=== PATIENT | female | born 1990 | race Caucasian/White ===

== ENCOUNTER 2016-11-04 14:58 | Emergency (ER) | payer BC ==
[2016-11-04] MEDS ORDERED: SODIUM CHLORIDE 0.9% FLUSH 5 ML FLUSH IVF PRN (16:15)
[2016-11-04] MEDS ORDERED: ACETAMINOPHEN 325 MG TAB PO ONE (16:15)
--- NOTE | 2016-11-04 16:27 | PD ---
HPI Chief Complaint Nausea, vomiting, diarrhea, left flank pain and pelvic pressure Date Seen: Nov 04, 2016 Travel History International Travel<30 Days: No Contact w/Intl Traveler<30Days: No Known Affected Area: No History of Present Illness HPI 26-year-old G 3 P1 011 at 20 weeks of gestation, EDC 03/24/17, patient presents to OB ED with complaints of nausea, vomiting, diarrhea, pelvic pressure and left flank pain. Patient stated that symptoms started this morning and that she vomited while she was OB ED. She denies fever and chills, reports presence of clear vaginal discharge with no irritation or odor. Patient denies contractions, leakage of fluids, vaginal bleeding and cramping. care is with Dr. Jacobson. course is significant for history of delivery 1. Patient denies sick contacts at home. Para: 1 : 2 Miscarriage: 1 : 0 History Past Medical History Narrative Medical Denies Medical History: Denies Significant Hx Allergies-Medications (Allergen,Severity, Reaction): Coded Allergies: No Known Allergies (Unverified , 11/04/16) Review of Systems Except as stated in HPI: all other systems reviewed are Neg Gastrointestinal: Nausea, Vomiting, Diarrhea Genitourinary: Discharge, Other (left flank pain, pelvic pressure) Physical Exam Narrative GENERAL: Well-nourished, well-developed patient. SKIN: Warm and dry. HEAD: Normocephalic and atraumatic. EYES: No scleral icterus. No injection or drainage. ENT: No nasal drainage noted. Mucous membranes pink. Airway patent. NECK: Supple, trachea midline. No JVD. CARDIOVASCULAR: Regular rate and rhythm without murmurs, gallops, or rubs. RESPIRATORY: Breath sounds equal bilaterally. No accessory muscle use. BREASTS: Bilateral exam showed no masses , no retractions, no nipple discharge. ABDOMEN/GI: Abdomen soft, gravid, non-tender, bowel sounds present, no rebound, no guarding Gravid to 20weeks size Fundal Height: 20 cm GENITOURINARY: External Genitalia: intact and normal in appearance BUS glands: Normal Cervix: Closed long posterior Dilatation: Closed Effacement: 30% Station: -3 Presentation: Cephalic Membranes: Intact Uterine Contractions: None Heart tone by Doppler: 160's EXTREMITIES: No cyanosis or edema. BACK: Nontender without obvious deformity. No CVA tenderness. NEUROLOGICAL: Awake and alert. Motor and sensory grossly within normal limits. Five out of 5 muscle strength in all muscle groups. Normal speech. Data Data Vital Signs Reviewed: Yes Orders Vital Signs (Adult) [id number] AWAKE (11/04/16 16:11) ^ Heart (11/04/16 16:11) Activity Oob Ad Cecilia (11/04/16 16:11) Complete Blood Count With Diff (11/04/16 16:11) Basic Metabolic Panel (Bmp) (11/04/16 16:11) Urinalysis - C+S If Indicated (11/04/16 16:11) Sodium Chloride 0.9% Flush (Ns Flush) (11/04/16 21:00) Sodium Chloride 0.9% Flush (Ns Flush) (11/04/16 16:15) Acetaminophen (Tylenol) (11/04/16 16:15) Amylase (11/04/16 16:14) Lipase (11/04/16 16:14) MDM Diagnosis Diagnosis: Primary Impression: 20 weeks gestation of Additional Impression: Gastroenteritis Disposition: 01 DISCHARGE HOME Condition: Stable Patient Instructions: General Instructions, Nausea and Vomiting in ( ED) Additional Instructions: Return to labor and delivery if increased symptoms, cramping, contractions, leakage of fluids, vaginal discharge, decreased movement or vaginal bleeding. Drink plenty of fluids. kick counts. Keep office appointment as scheduled. Take medications as prescribed. Departure Forms: Tests/Procedures Fuad Fajardo MD Nov 04, 2016 16:27
[2016-11-04 16:49] LABS: AUTOMATED NEUTROPHIL # 8.5 TH/MM3 (1.8-7.7); BASOPHIL % 0.2 % (0.0-2.0); EOSINOPHIL # 0.1 TH/MM3 (0-0.4); EOSINOPHIL % 0.9 % (0.0-4.0); HEMATOCRIT 33.3 % (35.0-46.0); HEMO FLAGS DIFF FINAL; LYMPH % 11.2 % (9.0-44.0); LYMPHOCYTE # 1.2 TH/MM3 (1.0-4.8); MEAN CELL VOLUME 87.8 FL (80.0-100.0); MEAN CORPUSCULAR HEMOGLOBIN 31.1 PG (27.0-34.0); MEAN CORPUSCULAR HGB CONC 35.4 % (32.0-36.0); MONO % 5.8 % (0.0-8.0); NEUT % 81.9 % (16.0-70.0); PLATELET COUNT 238 TH/MM3 (150-450); RED BLOOD COUNT 3.79 MIL/MM3 (4.00-5.30); RED CELL DISTRIBUTION WIDTH 13.7 % (11.6-17.2); WHITE BLOOD COUNT 10.4 TH/MM3 (4.0-11.0)
[2016-11-04] MEDS ORDERED: LACTATED RINGER'S 1000 ML INJ 1,000 ML IV SCH (17:00)
[2016-11-04] MEDS ORDERED: ONDANSETRON HCL 4 MG/2 ML VIAL IV PUSH PRN (17:00)
[2016-11-04 17:02] VITALS: RESP 18
[2016-11-04 17:03] VITALS: BP 124/73; PULSE 97
[2016-11-04 17:14] LABS: BLOOD, URINE SMALL (NEG); COMMENT (UR) CULT NOT INDICATED; CULTURE IF INDICATED CULT NOT INDICATED; GLUCOSE,URINE NEG (NEG); KETONE, URINE 40 mg/dL (NEG); NITRITE,URINE NEG (NEG); PH, URINE 7.5 (5.0-8.5); SQUAMOUS EPITHELIAL CELL URINE 1 /hpf (0-5); URINE COLOR LIGHT-YELLOW (YELLW/STRAW)
[2016-11-04 17:14] LABS: BICARBONATE 22.8 MEQ/L (21.0-32.0); POTASSIUM 3.7 MEQ/L (3.5-5.1)
[2016-11-04] MEDS ORDERED: SODIUM CHLORIDE 0.9% FLUSH 5 ML FLUSH IVF SCH (21:00)
[2016-11-04 21:33] LABS: AMYLASE 77 U/L (25-115)
== END 2016-11-04 17:53 | disposition home or self-care (01) ==
LOC: HOBED 14:58
DX: K52.9 Noninfective gastroenteritis and colitis, unspecified (principal); O26.892 Other specified pregnancy related conditions, second trimester; Z3A.20 20 weeks gestation of pregnancy
CPT/HCPCS: 76815; 80048; 81001; 82150; 83690; 85025; 96360; 99284; J7120

== ENCOUNTER → 2017-01-09 | Outpatient (CLI) | payer BC ==
[~2017-01-09] MED LIST: FERR325T PO; IBUP800T23 PO; OXYC1TAB63 PO; SENN1TAB PO
== END ==
LOC: CLAB 13:18
PROVIDERS: ATTEND Obstetrics & Gynecology
DX: Z34.83 Encounter for supervision of other normal pregnancy, third trimester (principal); Z3A.28 28 weeks gestation of pregnancy; Z67.41 Type O blood, Rh negative
CPT/HCPCS: 36415; 86850; 86900; 86901; 90384; 96372; J2790

== ENCOUNTER 2017-03-15 08:19 | Inpatient (IN) | payer BC ==
[2017-03-15] VITALS (14 sets, daily range): BP systolic 98–124; BP diastolic 42–72; PULSE 82–109; RESP 18–20; TEMP 98.1–100.4; O2SAT 96–98
[2017-03-15] MEDS: LACTATED RINGER'S 1000 ML INJ 1,000 ML IV SCH ×3 (08:51→15:29)
[2017-03-15] MEDS ORDERED: LACTATED RINGER'S 1000 ML INJ 1,000 ML IV PRN (08:51)
[2017-03-15] MEDS ORDERED: LIDOCAINE HCL 1% 50 ML VIAL INFIL PRN (09:00)
[2017-03-15] MEDS ORDERED: LIDOCAINE HCL 1% 50 ML VIAL I-DERMAL PRN (09:00)
[2017-03-15] MEDS ORDERED: SODIUM CHLORID 0.9% 500 ML INJ 500 ML IV PRN (09:00)
[2017-03-15] MEDS ORDERED: MINERAL OIL 10 ML VIAL TOPICAL PRN (09:00)
[2017-03-15] MEDS ORDERED: OXYTOCIN 30 UNITS-500ML PREMIX 500 ML IV ONE ×2 (09:00→20:15)
[2017-03-15] MEDS ORDERED: CITRIC ACID-SODIUM CITRATE LIQ 30 ML UDC PO SCH ×2 (09:00→18:45)
[2017-03-15] MEDS ORDERED: SODIUM CHLOR 0.9% 1000 ML INJ 1,000 ML IV PRN (09:11)
--- NOTE | 2017-03-15 09:17 | PD ---
HPI Chief Complaint Possible ruptured membranes Date Seen: March 15, 2017 Time Seen: 08:55 Travel History International Travel<30 Days: No Contact w/Intl Traveler<30Days: No Known Affected Area: No History of Present Illness HPI 27-year-old 3 para 1 AB 1 at 38-2/7 weeks' gestation who comes today with report of ruptured membranes. She states that at 6:30 this morning she had a large amount of clear fluid leaking from the vagina. She denies significant contractions or bleeding. Her examination for rupture membranes was positive and her cervix is 2 cm, 50% effaced, -2 station, vertex presentation. She has had an uncomplicated course with Dr. Jacobson. She has a prior and is planning to . Para: 1 : 3 Miscarriage: 1 History Past Medical History Medical History: Denies Significant Hx Past Surgical History Narrative Surgical Family History Family History: Negative Social History Alcohol Use: No Tobacco Use: No Substance Abuse: No Allergies-Medications (Allergen,Severity, Reaction): Coded Allergies: No Known Allergies (Unverified , 11/04/16) Review of Systems Except as stated in HPI: all other systems reviewed are Neg Physical Exam Narrative GENERAL: Well-nourished, well-developed patient. SKIN: Warm and dry. HEAD: Normocephalic and atraumatic. EYES: No scleral icterus. No injection or drainage. ENT: No nasal drainage noted. Mucous membranes pink. Airway patent. NECK: Supple, trachea midline. No JVD. CARDIOVASCULAR: Regular rate and rhythm without murmurs, gallops, or rubs. RESPIRATORY: Breath sounds equal bilaterally. No accessory muscle use. ABDOMEN/GI: Abdomen soft, non-tender, bowel sounds present, no rebound, no guarding Gravid to [-] weeks size Fundal Height: [-] GENITOURINARY: External Genitalia: intact and normal in appearance BUS glands: [Normal-] Cervix: [-] Dilatation: [2-] Effacement: [50-] Station: [-2-] Presentation: [Vertex-] Membranes: [ruptured] Uterine Contractions: [-Mild irregular] FHT's: Category: [1-] Baseline: [-] Reactive: [-] Variability: [-] Decels: [-] EXTREMITIES: No cyanosis or edema. BACK: Nontender without obvious deformity. No CVA tenderness. NEUROLOGICAL: Awake and alert. Motor and sensory grossly within normal limits. Five out of 5 muscle strength in all muscle groups. Normal speech. Data Data Vital Signs Reviewed: Yes MDM Medical Record Reviewed: Yes Narrative Course / MDM Assessment: 38+ week intrauterine with spontaneous rupture membranes, prior desiring Plan: The patient will be admitted for labor management. Zackary Buchanan MD March 15, 2017 09:17
--- NOTE | 2017-03-15 09:24 | HHI.HP ---
History & Physical H&P Patient Name: Khadra Horn Unit Number: [id number] Date of : 1990 Patient Status: Admitted Inpatient Attending Doctor: Chantal Jacobson MD [facility] HPI Chief Complaint Possible ruptured membranes Date Seen: March 15, 2017 Time Seen: 08:55 Travel History International Travel<30 Days: No Contact w/Intl Traveler<30Days: No Known Affected Area: No History of Present Illness HPI 27-year-old 3 para 1 AB 1 at 38-2/7 weeks' gestation who comes today with report of ruptured membranes. She states that at 6:30 this morning she had a large amount of clear fluid leaking from the vagina. She denies significant contractions or bleeding. Her examination for rupture membranes was positive and her cervix is 2 cm, 50% effaced, -2 station, vertex presentation. She has had an uncomplicated course with Dr. Jacobson. She has a prior and is planning to . Para: 1 : 3 Miscarriage: 1 History (Limited) History Past Medical History Medical History: Denies Significant Hx Past Surgical History Narrative Surgical Family History Family History: Negative Social History Alcohol Use: No Tobacco Use: No Substance Abuse: No Allergies-Medications Allergies-Medications (Allergen,Severity, Reaction): Coded Allergies: No Known Allergies (Unverified , 11/04/16) ROS Review of Systems Except as stated in HPI: all other systems reviewed are Neg Physical Exam Physical Exam Narrative GENERAL: Well-nourished, well-developed patient. SKIN: Warm and dry. HEAD: Normocephalic and atraumatic. EYES: No scleral icterus. No injection or drainage. ENT: No nasal drainage noted. Mucous membranes pink. Airway patent. NECK: Supple, trachea midline. No JVD. CARDIOVASCULAR: Regular rate and rhythm without murmurs, gallops, or rubs. RESPIRATORY: Breath sounds equal bilaterally. No accessory muscle use. ABDOMEN/GI: Abdomen soft, non-tender, bowel sounds present, no rebound, no guarding Gravid to [-] weeks size Fundal Height: [-] GENITOURINARY: External Genitalia: intact and normal in appearance BUS glands: [Normal-] Cervix: [-] Dilatation: [2-] Effacement: [50-] Station: [-2-] Presentation: [Vertex-] Membranes: [ruptured] Uterine Contractions: [-Mild irregular] FHT's: Category: [1-] Baseline: [-] Reactive: [-] Variability: [-] Decels: [-] EXTREMITIES: No cyanosis or edema. BACK: Nontender without obvious deformity. No CVA tenderness. NEUROLOGICAL: Awake and alert. Motor and sensory grossly within normal limits. Five out of 5 muscle strength in all muscle groups. Normal speech. Data Data Data Vital Signs Reviewed: Yes MDM MDM Medical Record Reviewed: Yes Narrative Course / MDM Assessment: 38+ week intrauterine with spontaneous rupture membranes, prior desiring Plan: The patient will be admitted for labor management. Dr. Jacobson was notified. Zackary Buchanan MD March 15, 2017 09:17 Zackary Buchanan MD March 15, 2017 09:24
[2017-03-15 10:00] LABS: AUTOMATED NEUTROPHIL # 6.8 TH/MM3 (1.8-7.7); BASOPHIL % 0.4 % (0.0-2.0); EOSINOPHIL # 0.2 TH/MM3 (0-0.4); EOSINOPHIL % 1.9 % (0.0-4.0); HEMATOCRIT 33.7 % (35.0-46.0); HEMO FLAGS DIFF FINAL; LYMPH % 23.4 % (9.0-44.0); LYMPHOCYTE # 2.4 TH/MM3 (1.0-4.8); MEAN CELL VOLUME 89.1 FL (80.0-100.0); MEAN CORPUSCULAR HEMOGLOBIN 30.4 PG (27.0-34.0); MEAN CORPUSCULAR HGB CONC 34.1 % (32.0-36.0); MONO % 8.3 % (0.0-8.0); PLATELET COUNT 212 TH/MM3 (150-450); RED BLOOD COUNT 3.78 MIL/MM3 (4.00-5.30); RED CELL DISTRIBUTION WIDTH 13.6 % (11.6-17.2); WHITE BLOOD COUNT 10.2 TH/MM3 (4.0-11.0)
[2017-03-15 10:04] LABS: BACTERIA, URINE FEW /hpf; BLOOD, URINE MOD (NEG); COMMENT (UR) CULTURE INDICATED; CULTURE IF INDICATED CULTURE INDICATED; GLUCOSE,URINE NEG (NEG); HYALINE CAST, URINE 2 /lpf (RARE); KETONE, URINE NEG (NEG); MUCUS URINE FEW /lpf (OCC); NITRITE,URINE NEG (NEG); PH, URINE 7.5 (5.0-8.5); SQUAMOUS EPITHELIAL CELL URINE 12 /hpf (0-5); URINE COLOR YELLOW (YELLW/STRAW)
[2017-03-15] MEDS ORDERED: fentaNYL 2MCG-BUPIV 0.125% INJ 100 ML ONE (11:56)
[2017-03-15] MEDS ORDERED: ePHEDrine/NS 25 MG/5 ML SYR ONE (11:56)
--- NOTE | 2017-03-15 12:29 | PD.LABORPN ---
Subjective Subjective pt feeling increasing contractions. will be considering epidural later Objective Vital Signs Vital Signs Date Time Temp Pulse Resp B/P Pulse Ox O2 Delivery O2 Flow Rate FiO2 03/15/17 11:15 98.1 03/15/17 11:14 92 18 116/72 03/15/17 09:05 100 Objective Pelvic Exam: 3-470/-1, amniotomy remaining membranes, ceph, cat I tracing, prior variable deceleration. crx q4-5 min. Assessment/Plan Problem List: (1) History of delivery (2) Labor and delivery indication for care or intervention Assessment and Plan tolac at 38w2d presented w srom expectant management as she is progressing well on own. arom of remaining membranes performed. iupc placed Chantal Jacobson MD March 15, 2017 12:29 Decels: [-] Assessment/Plan Problem List: (1) History of delivery (2) Labor and delivery indication for care or intervention Assessment and Plan tolac at 38w2d presented w srom expectant management as she is progressing well on own. arom if remaining membranes performed. iupc placed Chantal Jacobson MD March 15, 2017 12:29
[2017-03-15] MEDS ORDERED: fentaNYL 2MCG-BUPIV 0.125% 100 ML EPIDURAL SCH (14:00)
[2017-03-15] MEDS ORDERED: DO NOT ADMINISTER ANTICOAGULANTS PRN (14:00)
[2017-03-15] MEDS ORDERED: ePHEDrine/NS 25 MG/5 ML SYR IV PRN (14:00)
[2017-03-15] MEDS ORDERED: NO SYSTEM NARCOTICS PRN (14:00)
[2017-03-15] MEDS ORDERED: LACTATED RINGER'S 1000 ML INJ 1,000 ML IV ONE (17:06)
[2017-03-15] MEDS ORDERED: OXYTOCIN 10 UNIT/ML AMP ONE (17:14)
[2017-03-15] MEDS ORDERED: ceFAZolin INJ 1,000 MG VIAL ONE (17:14)
[2017-03-15] MEDS ORDERED: LACTATED RINGER'S 1000 ML INJ 1,000 ML IV SCH (18:00)
[2017-03-15 18:09] LABS: BLOOD GAS BASE EXCESS -3.5 mmol/L (-2-2); BLOOD GAS O2 HGB SATURATION 21 % (90-100); CORD BLOOD GAS HCO3 23 mmol/L (21-29); CORD BLOOD GAS PCO2 52 mmHG (34-78); CORD BLOOD GAS PH 7.26 (7.14-7.42)
[2017-03-15 18:10] LABS: CORD BLOOD GAS PO2 16 mmHG (3.0-40.0); DRAW SITE CORD BLOOD; STAT NO
[2017-03-15] MEDS ORDERED: ceFAZolin 2 GM PREMIX 50 ML IV SCH (18:15)
[2017-03-15] MEDS ORDERED: ALBUMIN HUMAN 5% 12.5 GM/250 ML BOTTLE IV ONE (18:30)
[2017-03-15 18:49] LABS: HEMATOCRIT 27.5 % (35.0-46.0)
[2017-03-15] MEDS ORDERED: MORPHINE SULFATE PF 5 MG/10 ML VIAL EPIDURAL ONE (19:30)
[2017-03-15] MEDS ORDERED: MORPHINE SULFATE PF 5 MG/10 ML VIAL ONE (19:48)
[2017-03-15] MEDS ORDERED: ONDANSETRON HCL 4 MG/2 ML VIAL ONE (19:48)
[2017-03-15] MEDS ORDERED: ONDANSETRON HCL 4 MG/2 ML VIAL IV PUSH ONE (19:52)
[2017-03-15] MEDS ORDERED: DEXAMETHASONE SOD PHOS 4 MG/ML VIAL IV ONE (19:52)
[2017-03-15] MEDS ORDERED: PARENTERAL ELECTROLYTES PH 7.4 1000 ML BAG IV ONE (19:52)
--- NOTE | 2017-03-15 20:07 | PD.OB.DELI ---
Procedure Note Section Procedure Pre Op Diagnosis: (1) History of delivery (2) Non-reassuring electronic monitoring tracing (3) Arrested labor (4) Cephalopelvic disproportion Post Op Diagnosis: (1) History of delivery (2) Non-reassuring electronic monitoring tracing (3) Arrested labor (4) Cephalopelvic disproportion Performed by Chantal Jacobson Procedure: Repeat Low Transverse Sec Indication for delivery: Nonreassuring heart tracing, malposition ( ROT, asynclytic ) Informed consent obtained: For anesthesia, For procedure Confirmed correct: Patient, Procedure, Site, Time-out taken Anesthesia: Epidural Medication prior to procedure: As documented in eMAR Monitoring during procedure: Blood pressure monitoring, Pulse oximetry Urinary catheter: Inserted using sterile technique, To dependent drainage Sterile preparation: Duraprep Position: Supine with wedge to right side Operative Features Skin Incision: Pfannenstiel Uterine Incision: Low transverse w/knife / blunt ext Membranes Ruptured: Previously, Amount of liquid (copious), Appearance of fluid (clear) Delivery of infant: Other (deep transverse arrest) : Male One Minute : 8 Five Minute : 9 Weight: 3850g Status of infant: Viable, Cord blood, Nursery present Placenta delivered: Intact Medications: Antibiotics, Oxytocin Estimated blood loss: 1250ml Procedure tolerated: Fair Maternal Complications: Excessive bleeding, Other (extension of right angle of hysterotomy. Pt given albumin 250ml and 3000ml of LR for volume expansion) Maternal Condition: Stable Condition: Stable Procedure in detail see dictation Chantal Jacobson MD March 15, 2017 20:07
[2017-03-15] MEDS ORDERED: SIMETHICONE 80 MG CHEWABLE TAB PO PRN (20:15)
[2017-03-15] MEDS ORDERED: ONDANSETRON HCL 4 MG/2 ML VIAL IV PUSH PRN (20:15)
[2017-03-15] MEDS ORDERED: DOCUSATE SODIUM 50 MG/SENNA 8.6 MG TAB PO PRN (20:15)
[2017-03-15] MEDS ORDERED: ZOLPIDEM TARTRATE 5 MG TAB PO PRN (20:15)
[2017-03-15] MEDS ORDERED: oxyCODONE/ACETAMINOPHEN 5 MG/325 MG TAB PO PRN ×2 (20:15)
[2017-03-15] MEDS ORDERED: SODIUM CHLORIDE 0.9% FLUSH 10 ML FLUSH IV FLUSH PRN (20:15)
[2017-03-15] MEDS ORDERED: IBUPROFEN 600 MG TAB PO PRN (20:15)
[2017-03-15] MEDS ORDERED: KETOROLAC TROMETHAMINE 30 MG/ML (IVP) VIAL ONE (20:37)
[2017-03-15] MEDS: SODIUM CHLORIDE 0.9% FLUSH 10 ML FLUSH IV FLUSH SCH (21:00)
[2017-03-15 23:02] LABS: AUTOMATED NEUTROPHIL # 14.9 TH/MM3 (1.8-7.7); BASOPHIL % 0.1 % (0.0-2.0); HEMATOCRIT 25.6 % (35.0-46.0); HEMO FLAGS DIFF FINAL; LYMPH % 5.4 % (9.0-44.0); LYMPHOCYTE # 0.9 TH/MM3 (1.0-4.8); MEAN CELL VOLUME 88.5 FL (80.0-100.0); MEAN CORPUSCULAR HEMOGLOBIN 30.5 PG (27.0-34.0); MEAN CORPUSCULAR HGB CONC 34.5 % (32.0-36.0); MONO % 5.7 % (0.0-8.0); NEUT % 88.8 % (16.0-70.0); PLATELET COUNT 156 TH/MM3 (150-450); RED BLOOD COUNT 2.89 MIL/MM3 (4.00-5.30); RED CELL DISTRIBUTION WIDTH 13.4 % (11.6-17.2); WHITE BLOOD COUNT 16.8 TH/MM3 (4.0-11.0)
[2017-03-15 23:20] LABS: APTT (PATIENT) 30.2 SEC (24.3-30.1); INTERNATIONAL NORMALIZED RATIO 0.9 RATIO; PROTHROMBIN TIME - PATIENT 10.4 SEC (9.8-11.6)
[2017-03-16] MEDS ORDERED: LACTATED RINGER'S 1000 ML INJ 1,000 ML IV SCH (01:12)
[2017-03-16] MEDS ORDERED: ACETAMINOPHEN 1000 MG/100 ML VIAL IV ONE (02:00)
[2017-03-16 06:04] LABS: AUTOMATED NEUTROPHIL # 16.3 TH/MM3 (1.8-7.7); BASOPHIL % 0.1 % (0.0-2.0); HEMATOCRIT 23.7 % (35.0-46.0); HEMO FLAGS DIFF FINAL; LYMPH % 8.7 % (9.0-44.0); LYMPHOCYTE # 1.7 TH/MM3 (1.0-4.8); MEAN CELL VOLUME 90.1 FL (80.0-100.0); MEAN CORPUSCULAR HEMOGLOBIN 30.5 PG (27.0-34.0); MEAN CORPUSCULAR HGB CONC 33.9 % (32.0-36.0); MONO % 6.3 % (0.0-8.0); NEUT % 84.9 % (16.0-70.0); PLATELET COUNT 166 TH/MM3 (150-450); RED BLOOD COUNT 2.63 MIL/MM3 (4.00-5.30); RED CELL DISTRIBUTION WIDTH 13.4 % (11.6-17.2); WHITE BLOOD COUNT 19.1 TH/MM3 (4.0-11.0)
[2017-03-16] MEDS ORDERED: OXYTOCIN 30 UNITS-500ML PREMIX 500 ML IV PRN (06:15)
[2017-03-16 09:05] VITALS: BP 107/74; PULSE 93; RESP 18; TEMP 98.8
[2017-03-16] MEDS: ACETAMINOPHEN 325 MG TAB PO PRN ×2 (09:39→16:28)
--- NOTE | 2017-03-16 10:15 | HHI.OB ---
Subjective Post Operative Day: 1 Remarks Pt doing well this morning. Denies symptoms of anemia; no sob, palpitations, weakness or dizziness. Has only been taking ibuprofen and tylenol for pain control and is doing well. Liban po, passing flatus. Min VB. Does not want to do iron infusion as it has made her sick in the past. Does not feel symptomatic or desire blood transfusion at this time. Will continue to monitor symptoms and H/H. Objective Vitals/I&O Vital Signs Date Time Temp Pulse Resp B/P Pulse Ox O2 Delivery O2 Flow Rate FiO2 03/16/17 09:05 98.8 93 18 107/74 03/15/17 21:00 108 124/65 03/15/17 21:00 18 97 03/15/17 20:53 109 118/56 03/15/17 20:53 20 98 03/15/17 20:53 100.4 03/15/17 20:34 105 18 123/62 98 03/15/17 20:17 107 18 113/56 03/15/17 20:17 96 03/15/17 20:07 108 20 115/59 98 03/15/17 20:00 99 20 106/51 03/15/17 20:00 97 03/15/17 19:49 99.5 03/15/17 13:26 104 99/57 03/15/17 13:25 88 03/15/17 13:20 97 03/15/17 13:15 82 03/15/17 13:15 93 98/42 03/15/17 11:15 98.1 03/15/17 11:14 92 18 116/72 Result Diagram: 03/16/17 0454 Objective Remarks GENERAL: Well-nourished, well-developed patient. CARDIOVASCULAR: Regular rate and rhythm without murmurs, gallops, or rubs. RESPIRATORY: Breath sounds equal bilaterally. No accessory muscle use. ABDOMEN/GI: Abdomen soft, non-tender, bowel sounds present. Incision: pressure dressing Clean, dry and intact. Fundus: Firm, non-tender at umbilicus. GENITOURINARY: Light to moderate bleeding. EXTREMITIES: No cyanosis or edema, non-tender, without signs of DVT. Medications and IVs Current Medications Medications (Trade) Dose Ordered Sig/Ed Route Start Time Stop Time Status Last Admin Fentanyl Citrate 100 mcg 100 mcg Q1H PRN IV PUSH 03/15/17 09:00 (Lr 1000 ml Inj) 1,000 ml @ 100 mls/hr Q10H IV 03/16/17 01:12 03/16/17 21:11 (NS Flush) 2 ml BID IV FLUSH 03/15/17 21:00 (NS Flush) 2 ml UNSCH PRN IV FLUSH 03/15/17 20:15 (Mylicon Chew) 80 mg QID PRN PO 03/15/17 20:15 (Tylenol) 650 mg Q6H PRN PO 03/15/17 20:15 03/16/17 09:39 (Motrin) 600 mg Q6H PRN PO 03/15/17 20:15 03/16/17 09:40 (Percocet 5-325 Mg) 1 tab Q4H PRN PO 03/15/17 20:15 (Percocet 5-325 Mg) 2 tab Q4H PRN PO 03/15/17 20:15 (Rose-Colace) 2 tab Q12H PRN PO 03/15/17 20:15 (Ambien) 5 mg HS PRN PO 03/15/17 20:15 (M-M-R Ii Inj) 0.5 ml ONCE ONCE SQ 03/16/17 16:00 03/16/17 16:01 (Boostrix Inj) 0.5 ml ONCE ONCE IM 03/16/17 16:00 03/16/17 16:01 (Zofran Inj) 4 mg Q6H PRN IV PUSH 03/15/17 20:15 Assessment/Plan Problem List: (1) History of delivery (2) Labor and delivery indication for care or intervention Assessment and Plan 27 yo s/p repeat CD for failed tolac, NRFHT and CPD. Procedure complicated by extension of hysterotomy and ebl 1250ml POD 1 - doing well, cont routine care, will start to ambulate, still needs to void. Will remove dressing after shower Anemia- Does not want to do iron infusion as it has made her sick in the past. Does not feel symptomatic or desire blood transfusion at this time. Will continue to monitor symptoms and H/H. Baby Boy doing well, needs circ Chantal Jacobson MD March 16, 2017 10:15
[2017-03-16 12:25] VITALS: BP 108/68; PULSE 88; RESP 18; TEMP 98.4
--- NOTE | 2017-03-16 15:57 | HHI.DCPOC ---
Discharge Care Plan Diagnosis: (1) History of delivery (2) S/P repeat low transverse Your Health Problems Are: delivery Report Symptoms to Your Doctor -Temperate above 100.5 degrees -Redness, of incision or excessive or foul smelling drainage -Unusual pain or calf pain -Increased vaginal bleeding -Painful or difficulty urinating -Feelings of extreme sadness or anxiety after 2 weeks Goals to Promote Your Health * To prevent worsening of your condition and complications * To maintain your health at the optimal level Directions to Meet Your Goals Take your medications as prescribed Follow your dietary instruction Follow activity as directed Ensure plenty of rest for recovery Drink fluids for hydration Keep your appointments as scheduled Take your immunizations and boosters as scheduled If your symptoms worsen call your PCP, if no PCP go to Urgent Care Center or Emergency Room Smoking is Dangerous to Your Health. Avoid second hand smoke Call the 24-hour crisis hotline for domestic abuse at Betty Reid MD March 16, 2017 15:57
[2017-03-16] MEDS ORDERED: IBUP800T23 PO (15:58)
[2017-03-16] MEDS ORDERED: OXYC1TAB63 PO (15:58)
[2017-03-16] MEDS ORDERED: FERR325T PO (15:58)
[2017-03-16] MEDS ORDERED: SENN1TAB PO (15:58)
[2017-03-16] MEDS ORDERED: MEASLES, MUMPS, RUBELLA VACCINE 0.5 ML VIAL SQ ONE (16:00)
[2017-03-16] MEDS ORDERED: DIPHTH/TETANUS/ACEL PERTUSSIS (BOOSTER) 0.5 ML VIAL/PFS IM ONE (16:00)
[2017-03-16] MEDS: IBUPROFEN 800 MG TAB PO PRN (16:28)
[2017-03-16 17:30] VITALS: BP 115/65; PULSE 87; RESP 18; TEMP 97.9
[2017-03-17] MEDS: ACETAMINOPHEN 325 MG TAB PO PRN ×4 (01:26→22:20)
[2017-03-17] MEDS: IBUPROFEN 800 MG TAB PO PRN ×4 (01:26→22:20)
[2017-03-17 06:02] LABS: AUTOMATED NEUTROPHIL # 11.7 TH/MM3 (1.8-7.7); BASOPHIL % 0.1 % (0.0-2.0); EOSINOPHIL # 0.1 TH/MM3 (0-0.4); EOSINOPHIL % 0.8 % (0.0-4.0); HEMATOCRIT 22.3 % (35.0-46.0); HEMO FLAGS DIFF FINAL; LYMPH % 12.4 % (9.0-44.0); LYMPHOCYTE # 1.8 TH/MM3 (1.0-4.8); MEAN CELL VOLUME 90.4 FL (80.0-100.0); MEAN CORPUSCULAR HEMOGLOBIN 31.1 PG (27.0-34.0); MEAN CORPUSCULAR HGB CONC 34.4 % (32.0-36.0); MONO % 6.9 % (0.0-8.0); NEUT % 79.8 % (16.0-70.0); PLATELET COUNT 175 TH/MM3 (150-450); RED BLOOD COUNT 2.46 MIL/MM3 (4.00-5.30); RED CELL DISTRIBUTION WIDTH 13.6 % (11.6-17.2); WHITE BLOOD COUNT 14.6 TH/MM3 (4.0-11.0)
[2017-03-17 08:20] VITALS: BP 107/65; PULSE 87; RESP 18; TEMP 98
--- NOTE | 2017-03-17 09:02 | HHI.OB ---
Subjective Post Operative Day: 2 Remarks POD#2, cd, with intraoperative hemorrhage,;stable, hgb 7.7 Objective Vitals/I&O Vital Signs Date Time Temp Pulse Resp B/P Pulse Ox O2 Delivery O2 Flow Rate FiO2 03/16/17 17:30 97.9 87 18 115/65 03/16/17 12:25 98.4 88 18 108/68 03/16/17 09:05 98.8 93 18 107/74 Result Diagram: 03/17/17 0445 Objective Remarks GENERAL: Well-nourished, well-developed patient. CARDIOVASCULAR: Regular rate and rhythm without murmurs, gallops, or rubs. RESPIRATORY: Breath sounds equal bilaterally. No accessory muscle use. ABDOMEN/GI: Abdomen soft, non-tender, bowel sounds present. Incision: pressure dressing Clean, dry and intact. Fundus: Firm, non-tender at umbilicus. GENITOURINARY: Light to moderate bleeding. EXTREMITIES: No cyanosis or edema, non-tender, without signs of DVT. Medications and IVs Current Medications Medications (Trade) Dose Ordered Sig/Ed Route Start Time Stop Time Status Last Admin (fentaNYL INJ) 100 mcg Q1H PRN IV PUSH 03/15/17 09:00 (NS Flush) 2 ml BID IV FLUSH 03/15/17 21:00 (NS Flush) 2 ml UNSCH PRN IV FLUSH 03/15/17 20:15 (Mylicon Chew) 80 mg QID PRN PO 03/15/17 20:15 (Tylenol) 650 mg Q6H PRN PO 03/15/17 20:15 03/17/17 01:26 (Percocet 5-325 Mg) 1 tab Q4H PRN PO 03/15/17 20:15 (Percocet 5-325 Mg) 2 tab Q4H PRN PO 03/15/17 20:15 (Rose-Colace) 2 tab Q12H PRN PO 03/15/17 20:15 (Ambien) 5 mg HS PRN PO 03/15/17 20:15 (Zofran Inj) 4 mg Q6H PRN IV PUSH 03/15/17 20:15 (Motrin) 800 mg Q8H PRN PO 03/16/17 17:00 03/17/17 01:26 Assessment/Plan Problem List: (1) History of delivery (2) Labor and delivery indication for care or intervention Assessment and Plan POD#2, Anemia hgb 7.7, no orthostatic sxs; Plan d/c on POD#3 Order cbc in am Discharge Planning routine Zackary Blake MD March 17, 2017 09:02
[2017-03-17 19:35] VITALS: BP 119/67; PULSE 93; RESP 16; TEMP 98.4
[2017-03-18] MEDS: ACETAMINOPHEN 325 MG TAB PO PRN ×2 (04:30→09:41)
[2017-03-18] MEDS: IBUPROFEN 800 MG TAB PO PRN ×2 (04:30→09:41)
[2017-03-18 05:54] LABS: HEMATOCRIT 21.5 % (35.0-46.0); MEAN CORPUSCULAR HEMOGLOBIN 31.3 PG (27.0-34.0); MEAN CORPUSCULAR HGB CONC 34.8 % (32.0-36.0); PLATELET COUNT 211 TH/MM3 (150-450); RED BLOOD COUNT 2.38 MIL/MM3 (4.00-5.30); RED CELL DISTRIBUTION WIDTH 13.5 % (11.6-17.2); REVIEW FLAG FINAL; WHITE BLOOD COUNT 9.1 TH/MM3 (4.0-11.0)
[2017-03-18 08:17] VITALS: BP 117/70; PULSE 79; RESP 18; TEMP 98.1
--- NOTE | 2017-03-18 08:39 | HHI.OB ---
Subjective Post Operative Day: 3 Remarks s/p repeat LTCD after failed TOLAC Objective Vitals/I&O Vital Signs Date Time Temp Pulse Resp B/P Pulse Ox O2 Delivery O2 Flow Rate FiO2 03/17/17 19:35 98.4 93 16 03/17/17 19:35 119/67 Result Diagram: 03/18/17 0533 Objective Remarks GENERAL: Well-nourished, well-developed patient. CARDIOVASCULAR: Regular rate and rhythm without murmurs, gallops, or rubs. RESPIRATORY: Breath sounds equal bilaterally. No accessory muscle use. ABDOMEN/GI: Abdomen soft, non-tender, bowel sounds present. Incision: jacques in place; incision Clean, dry and intact. Fundus: Firm, non-tender at umbilicus. GENITOURINARY: Light bleeding. EXTREMITIES: No cyanosis or edema, non-tender, without signs of DVT. Medications and IVs Current Medications Medications (Trade) Dose Ordered Sig/Ed Route Start Time Stop Time Status Last Admin (fentaNYL INJ) 100 mcg Q1H PRN IV PUSH 03/15/17 09:00 (NS Flush) 2 ml BID IV FLUSH 03/15/17 21:00 (NS Flush) 2 ml UNSCH PRN IV FLUSH 03/15/17 20:15 (Mylicon Chew) 80 mg QID PRN PO 03/15/17 20:15 (Tylenol) 650 mg Q6H PRN PO 03/15/17 20:15 03/18/17 04:30 (Percocet 5-325 Mg) 1 tab Q4H PRN PO 03/15/17 20:15 (Percocet 5-325 Mg) 2 tab Q4H PRN PO 03/15/17 20:15 (Rose-Colace) 2 tab Q12H PRN PO 03/15/17 20:15 03/17/17 09:24 (Ambien) 5 mg HS PRN PO 03/15/17 20:15 (Zofran Inj) 4 mg Q6H PRN IV PUSH 03/15/17 20:15 (Motrin) 800 mg Q8H PRN PO 03/16/17 17:00 03/18/17 04:30 Assessment/Plan Problem List: (1) History of delivery (2) Labor and delivery indication for care or intervention Assessment and Plan POD#2 with significant intraoperative blood loss; Anemia hgb 7.7 > 7.5; stable, pt asymptomatic, declines transfusion or IV iron, plan oral supplementation, Rx written d/c to home today with office f/u in 1-2 wks Discharge Planning routine Betty Reid MD March 18, 2017 08:39
[2017-03-18] MEDS: SODIUM CHLORIDE 0.9% FLUSH 10 ML FLUSH IV FLUSH SCH (09:00)
--- NOTE | 2017-03-20 08:33 | MP ---
cc: CHANTAL JACOBSON MD, PUJA MD DATE OF SURGERY 03/19/2017 PREOPERATIVE DIAGNOSIS History of delivery, failed trial of labor, non-reassuring heart tracing, arrest of labor, cephalopelvic disproportion, position ROT and asynclitic. POSTOPERATIVE DIAGNOSIS Same plus intraoperative hemorrhage SURGEON Chantal Jacobson MD [employer]AMP [employer]SEM[employer] Karen Rdz MD PROCEDURE PERFORMED Repeat low transverse section. INDICATIONS The patient is a 27-year-old G3, P1-0-1-1 who presented at 38 weeks and two days with a rupture of membrane. Her exam was 2 cm dilated, 50% effaced, -2 station, vertex presentation. The patient had desired a trial of labor after delivery. She had a small four bag present on exam. This was ruptured and intrauterine pressure catheter was placed to monitor her strength of contraction, the patient progressed well on her own. She was approximately 7 cm. Her MVU were intermittently adequate. She began to develop a category II tracing and exam noted 7 cm dilation, 80% effacement at -1 station with significant molding and the development of caput. I discussed with the patient that she was remote from delivery and had a category II tracing and there was suspicion for cephalopelvic disproportion. The next best step would be a delivery. The family was in agreement with the plan of care. Informed consent obtained for anesthesia and procedure, confirmed correct. Patient procedure site and time out taken. ANESTHESIA Epidural PROPHYLACTIC ANTIBIOTICS Ancef 2 grams IV pre-incision. DVT prophylaxis bilateral lower extremity SCD's. ESTIMATED BLOOD LOSS 1250 mL FLUIDS IV fluids lactated Ringer's 2000 mL, albumin 250 mL SPECIMEN Cord blood and gases COMPLICATIONS Extension of right angle of hysterotomy, intraoperative hemorrhage. INTRAOPERATIVE FINDINGS Copious amounts of clear amniotic fluid, viable male in deep transverse arrest and asynclitic. 's of 8 and 9 at one minute and five-minutes respectively. weight of 3850 grams, placenta with a three-vessel cord. Central positioning, placenta intact. Normal tubes and ovaries bilaterally. CONDITION Stable postoperatively. PROCEDURE IN DETAIL After review of informed consent, the patient was taken to the operating room. Time outs were taken. A Gillis had previously been inserted using sterile technique. The epidural was redosed for surgery. The abdomen was prepped and draped in normal sterile fashion. A Pfannenstiel skin incision was made at the previous incision site. This was carried down through the underlying layer of fascia with the Bovie. There was some scarring of the subcutaneous layer. The fascia was entered with the Bovie. This was extended bilaterally with Herndon scissors. The superior aspect of the fascial edges grasped with Judd clamps and the rectus muscles were dissected off both sharply and bluntly. There was some scarring at this layer as well. The inferior edge of the fascia was grasped with Judd clamps and the rectus muscle off sharply and bluntly. The rectus muscles were in midline with hemostats. The rectus muscles were bluntly. The peritoneum was identified, grasped with hemostats, tented and this incision was made with Metzenbaum scissors. This incision was extended bluntly after ensuring no adhesions. The bladder blade was then inserted in the lower uterine segment. A bladder flap was created with Metzenbaum scissors and the bladder blade was then repositioned. A low transverse uterine incision was made with a scalpel. The incision was extended bluntly in a cephalocaudal fashion. The cheek was present at the level of the hysterotomy. A hand was entered in the hysterotomy low into the pelvis. The head was suctioned into the pelvis. This suction had to be released. Once it was released, the head was able to be flexed and brought up to the level of the hysterotomy. Once at the level of the hysterotomy, fundal pressure was used to deliver the head, the rest of the body readily followed. 45 seconds lapsed prior to clamping the cord. A segment of cord was sent for a pH. Cord blood was collected. The uterus was massaged and gentle cord traction was used to deliver the placenta. An IV infusion Pitocin was started immediately after delivery of the fetus. The uterus was then exteriorized and it was at this point that it was noted that there was an extension on the right angle. This extension was in a lateral caudal direction and this was grasped with multiple ringed forceps and Billingsley clamps until the edge was identified and #1 chromic was used to close the extension. This was reinforced with a second layer. The hysterotomy was then repaired in a standard fashion in two layers of #1 chromic in a running locked fashion followed by an imbricating layer. At this point, inspection was performed of the extension site. There was a small pumping vessel that was noted. A [id number] with 2-0 chromic was performed which seemed to stop the bleeding. The posterior cul-de-sac was then irrigated and suctioned. The anterior cul-de-sac was irrigated and suctioned. The uterus was returned to the abdomen. There was mild serosal oozing noted. Josué was used. An observation period was performed to ensure that there was no bleeding. Some dark red blood was noted to ooze from the extension site. The uterus was exteriorized, careful inspection was made, two [id number] were performed and good hemostasis was noted. Surgicel was placed on this corner after the uterus was internalized. The fascia was then closed with #1 Vicryl in a running fashion. The subcutaneous space was closed with 2-0 chromic in two layers. The skin was then stapled and a pressure bandage was placed. immediately after procedure, The patient and the were briefed on the intraoperative hemorrhage and the extension of the hysterotomy and findings of anemia were reviewed with the patient. Options of IV iron transfusion and red blood cells were reviewed with the patient. She desired expected management as her blood pressure and heart rate had returned to normal in the PACU setting and she is asymptomatic. ADDENDUM The bladder was back filled with sterile formula to ensure it was intact. There is no extravasation of formula on the field. The bladder was then evacuated. Chantal Jacobson MD PE/QUETA /4:42 PM /8:01 AM ANSHUL
== END 2017-03-18 12:53 | disposition home or self-care (01) | DRG 765 ==
LOC: HOBED 08:19 → H2EA 09:11 → H1EA 21:30
PROVIDERS: ADMIT Obstetrics & Gynecology; ATTEND Obstetrics & Gynecology
PROC: 10D00Z1 Extraction of Products of Conception, Low, Open Approach (ICD-10-PCS; principal; 2017-03-15)
DX: O34.219 Maternal care for unspecified type scar from previous cesarean delivery (principal); D62 Acute posthemorrhagic anemia; O64.0XX0 Obstructed labor due to incomplete rotation of fetal head, not applicable or unspecified; O33.9 Maternal care for disproportion, unspecified; O62.1 Secondary uterine inertia; O76 Abnormality in fetal heart rate and rhythm complicating labor and delivery; O67.8 Other intrapartum hemorrhage; Z37.0 Single live birth; Z3A.38 38 weeks gestation of pregnancy
CPT/HCPCS: 81001; 82805; 84112; 85014; 85018; 85025; 85027; 85049; 85461; 85610; 85730; 86850; 86900; 86901; 86920; 87086; 90384; 90715; 99285; J0131; J0690; J1100; J1885; J2274; J2405; J2590; J2790; J3010; J7120